=== PATIENT | female | born 1990 | race Caucasian/White ===

== ENCOUNTER 2020-04-15 16:50 | Emergency (ER) | payer OTHER, SELFPAY ==
[~2020-04-15] VITALS: Ht 149.9 cm; Wt 53.5 kg
[~2020-04-15 16:50] MED LIST: IBUP-974 PO
[2020-04-15 17:14] VITALS: BP 155/104
--- NOTE | 2020-04-15 17:20 | NUR ---
PT C/O LEFT SIDED HEADACHE WITH THROBBING SENSATION, FEVER, LOSS THE SENSE OF TASTE, BODY ACHES FOR 6 DAYS. PT TOOK IBUPROFEN WITHOUT ANY IMPROVEMENT. PMH: DENIES
[2020-04-15] MEDS ORDERED: HYDROcodone/APAP 5/325 MG 1 TAB TAB PO ONE (17:45)
--- NOTE | 2020-04-15 18:12 | NUR ---
PCR swab collected and sent to lab.
--- NOTE | 2020-04-20 01:03 | NUR ---
Positive COVID-19 test results were received from lab. A copy of the test results were given to [facility].
== END 2020-04-15 18:45 | disposition home or self-care (01) ==
LOC: MED 16:50
DX: R51.9 Headache, unspecified (principal); Z20.828 Contact with and (suspected) exposure to other viral communicable diseases; R50.9 Fever, unspecified; Z79.1 Long term (current) use of non-steroidal anti-inflammatories (NSAID)
CPT/HCPCS: 99283; U0003